=== PATIENT | male | born 1950 | race Caucasian/White ===

== ENCOUNTER 2017-05-15 10:14 | Outpatient (CLI) | payer MEDICARE ==
--- NOTE | 2017-05-15 14:32 | RAD ---
BARIUM ENEMA: (AIR CONTRAST) Date: 05/15/17 HISTORY: Fecal urgency. FINDINGS: There is unobstructed retrograde flow of contrast through the colon and into the cecum with retrogra de filling of the terminal ileum. Scattered diverticula are seen throughout the colon. No obstructin g mass or stricture is identified. Post evacuation film demonstrates residual contrast in the colon and small bowel loops. There are postop changes in the pelvis on the filler shredder image. There are degenerative changes in the spi ne. IMPRESSION: Colonic diverticulosis. POS: JAYLA
== END 2017-05-15 10:15 | disposition home or self-care (01) ==
LOC: RAD 10:14
PROVIDERS: ATTEND Surgery
DX: R15.2 Fecal urgency (principal); K57.30 Diverticulosis of large intestine without perforation or abscess without bleeding
CPT/HCPCS: 74280; 87015; 87045; 87046; 87324; 87449; 87899

== ENCOUNTER 2019-05-05 10:58 | Outpatient (CLI) | payer MEDICARE ==
--- NOTE | 2019-05-05 11:58 | CT ---
CT the abdomen with contrast INDICATION: diarrhea and epigastric abdominal pain Contrast: 70 cc of Isovue-370 COMPARISON: Prior CT the abdomen and pelvis dated 12/06/2015, 11/29/[address] dated 11/09 FINDINGS: There is bibasilar atelectasis. There are enlarging enhancing lesions seen within the right hepatic lobe on image 12 series 2 measuri ng 2.8 cm. An additional enlarging lesion is seen within the lateral right hepatic lobe on image 27 series 2 measuring 1.8 cm. These have increased in size from the comparison exams. There is stable right adrenal adenoma. Visualized gallbladder, left adrenal gland, pancreas and splee n appear within normal limits. The kidneys are normal appearing. There are moderate consultation involving abdominal aorta. A few scattered colonic diverticula. There is a normal appendix in the right lower quadrant. No lymph adenopathy is evident. There is scattered degenerative change. IMPRESSION: 1. Enlarging enhancing lesions of the right hepatic lobe. Recommend follow-up CT the abdomen utilizin g hemangioma protocol for additional characterization. 2. Stable right adrenal adenoma. 3. Colonic diverticulosis.
[2019-05-05] MEDS ORDERED: ISOVUE-370 76%-LOCM 1 ML ONE (17:51)
== END 2019-05-05 10:59 | disposition home or self-care (01) ==
LOC: BICCT 10:58
PROVIDERS: ATTEND Internal Medicine Gastroenterology
DX: R19.7 Diarrhea, unspecified (principal); K86.89 Other specified diseases of pancreas; K76.9 Liver disease, unspecified; D35.01 Benign neoplasm of right adrenal gland; K57.30 Diverticulosis of large intestine without perforation or abscess without bleeding
CPT/HCPCS: 74160; 82565; Q9966

== ENCOUNTER 2019-05-12 09:08 | Outpatient (CLI) | payer MEDICARE ==
--- NOTE | 2019-05-12 12:38 | CT ---
CT ABDOMEN WITH AND WITHOUT CONTRAST: HISTORY: Abnormal area of enhancement at the anterior aspect of the liver, which may represent a hemangioma. COMPARISON: 05/05/2019 TECHNIQUE: Multiple contiguous axial images were obtained in a CTA of the abdomen only with and without IV contr ast. Post contrast images were obtained in the arterial, portal venous and delayed phases. Strength a nd coronal reformats were performed. FINDINGS: There is an area of arterial enhancement along the anterior aspect of the liver, measuring 1.9 cm in size. This is smaller than on the prior examination. On the arterial phase image, there is a small pu nctate focus of enhancement along the anterior capsule of the liver and the enhancement is more promi nent within the liver on the later arterial/portal venous phase. On the delayed phase images there is homogeneous enhancement of the liver without significant washout. No other liver lesions are seen. There is a well circumscribed mass, measuring 3.9 cm in size, in the right adrenal gland with a mean Hounsfield unit value of -11. This is consistent with a fat-containing adrenal adenoma. The gallbladd er, kidneys, left adrenal glands, spleen, and pancreas are unremarkable. No free air, free fluid, or stranding changes are seen in the abdomen. The visualized large and small bowel are unremarkable. Atherosclerotic calcifications are seen in the aorta. Degenerative changes are seen in the spine. The visualized inferior thorax and abdominal wall soft ti ssue s are unremarkable IMPRESSION: 1. The area of abnormal enhancement of the liver most likely represents a vascular anomaly, such as a portal venous shunt. No suspicious hepatic mass is identified. 2. Right fat-containing adrenal adenoma. POS: JAYLA
[2019-05-12] MEDS ORDERED: ISOVUE-370 76%-LOCM 1 ML ONE (20:33)
== END 2019-05-12 09:09 | disposition home or self-care (01) ==
LOC: BICCT 09:08
PROVIDERS: ATTEND Internal Medicine Gastroenterology
DX: R93.3 Abnormal findings on diagnostic imaging of other parts of digestive tract (principal); D35.01 Benign neoplasm of right adrenal gland
CPT/HCPCS: 74170; Q9966

== ENCOUNTER 2019-07-22 12:28 | Outpatient (CLI) | payer MEDICARE ==
[2019-07-22 14:13] LABS: Hemoglobin 15.7 g/dL (14.0-18.0); Mean Corpuscular HGB CONC 33.1 g/dL (32.0-36.0); Mean Corpuscular Hemoglobin 30.4 pg (27.0-31.0); Mean Platelet Volume 6.7 fL (7.4-10.4); Platelet Count 251 thou/uL (130-400); RBC Distribution Width 13.1 % (11.5-14.5); Red Blood Cell (RBC) Count 5.15 mill/uL (4.70-6.10); White Blood Cell (WBC) Count 6.9 thou/uL (4.8-10.8)
[2019-07-22 14:37] LABS: Anion Gap 13 mmol/L (10-20); BUN (Urea Nitrogen) 15 mg/dL (8.4-25.7); Calc. Creatinine Clearance 0 mL/min (70-130); Calcium 9.1 mg/dL (7.8-10.44); Carbon Dioxide 24 mmol/L (23-31); Chloride 105 mmol/L (98-107); Estimated GFR-MDRD Greater than 90; Glucose 68 mg/dL (80-115); Potassium 4.2 mmol/L (3.5-5.1); Sodium 138 mmol/L (136-145)
[2019-07-22 15:21] LABS: INR-International Normal Ratio 1.3; PTT 35.3 SEC (22.9-36.1); Prothrombin Time 16.2 SEC (12.0-14.7)
== END 2019-07-22 12:29 | disposition home or self-care (01) ==
LOC: LABBT 12:28
PROVIDERS: ATTEND Internal Medicine Cardiovascular Disease
DX: Z01.812 Encounter for preprocedural laboratory examination (principal); I48.91 Unspecified atrial fibrillation
CPT/HCPCS: 80048; 85027; 85610; 85730

== ENCOUNTER 2019-07-26 08:11 | Observation (INO) | payer MEDICARE ==
[2019-07-22 12:52] VITALS: BMI 25.0
[2019-07-26] MEDS ORDERED: Heparin 10,000 UNITS/1 ML VIAL ONE (08:44)
[2019-07-26] MEDS ORDERED: Heparin (Artline) 1,500 ML ONE (08:44)
[2019-07-26] MEDS ORDERED: Midazolam HCl 2 mg/2 ml Vial ONE (09:46)
[2019-07-26] MEDS ORDERED: PROPOFOL 20 ML ONE (09:47)
[2019-07-26] MEDS ORDERED: Fentanyl 100 MCG/2 ML VIAL ONE (09:49)
[2019-07-26] MEDS ORDERED: Lidocaine 1% PF 5 ML VIAL ONE (09:57)
[2019-07-26] MEDS ORDERED: Succinylcholine Chloride 20 MG/ML 10 ml SYRINGE FS ONE (09:57)
[2019-07-26] MEDS ORDERED: PROPOFOL 200 MG/20 ML VIAL ONE (09:57)
[2019-07-26] MEDS ORDERED: Rocuronium Bromide 10 MG/ML (10ML VIAL) ONE (09:57)
[2019-07-26] MEDS ORDERED: Phenylephrine HCL 10 MG/ML VIAL ONE (10:35)
[2019-07-26] MEDS ORDERED: Heparin 25,000 units/D5W 500 ML ONE (10:39)
[2019-07-26] MEDS ORDERED: Isoproterenol 0.2 MG/1 ML AMP ONE (11:35)
[2019-07-26] MEDS ORDERED: Norepinephrine 4 MG/4 ML VIAL ONE (11:40)
[2019-07-26] MEDS ORDERED: Protamine Sulfate 50 MG/5 ML VIAL ONE (12:06)
--- NOTE | 2019-07-26 14:03 | OP ---
DATE OF PROCEDURE: 07/26/2019 PROCEDURES PERFORMED: 1. Electrophysiology study. 2. Radiofrequency ablation. REASON FOR PROCEDURE: Mr. Dior is a 69-year-old man with history of persisting atrial fibrillation, which recurs despite Multaq and on chronic Eliquis therapy. He had previous normal LVEF. Diabetes and hypertension also noted. He is here for EP study and ablation procedure. DESCRIPTION OF PROCEDURE: The patient received propofol by anesthesia specialist and general anesthesia was delivered. The left and right femoral venous areas were prepped and draped and anesthetized using subcutaneous lidocaine, and under ultrasound guidance, both femoral veins were cannulated x2. On the left side, an 8- and 11-Danish sheath were introduced, through which an intracardiac echocardiogram probe was advanced to the right atrium, which was used to monitor transseptal procedure and pericardial space throughout. Also on the left side, the short 8-Danish sheath was exchanged to a Preface long sheath, which was used to deliver a duo-Deca catheter to the coronary sinus and the right atrial position. On the right side, initially two 8-Danish sheath was introduced, through which a ThermoCool SFST bidirectional catheter was advanced to the right atrium. 3D map of the right atrium, His bundle, coronary sinus was also obtained. Following that, IV heparin was administered in a bolus and a drip fashion, which was used to keep ACT over 350 throughout the case. Through the right side, sheaths were exchanged to SL1 sheaths, which were used to perform transseptal puncture using a powered [place] needle under intracardiac ultrasound and fluoroscopic guidance. 3D map of the left atrium was obtained and standard pulmonary venous isolation was performed using a total of 16 minutes radiofrequency energy, delivered over 22 sessions with #42 bolivar energy output was used. Throughout the case, an esophageal probe was used to monitor temperatures in the esophagus to avoid excessive heating. Also, impedance monitoring was performed and pressure monitoring throughout the procedure. We were able to achieve all 4 vein isolation and also the posterior was isolated using a roof and the inferior line. Beside this efforts, the patient remained in atrial fibrillation, only moderate scarring was seen. Cardioversion was performed at this point and normal sinus rhythm remained. Isuprel was administered up to 10 mcg and any reconnection re-ablated. At the end of the case, a basic EP study was performed using LV pacing to rule out accessory pathway. Retrograde Wenckebach was measured at 330 milliseconds. Antegrade Wenckebach on Isuprel was 250 milliseconds. The atrial ERP was 500/240 milliseconds and no definite dual AV node physiology and no evidence of accessory pathway was found. At the end of the case, catheter was removed from the left side. Heparin was stopped and then reversed with protamine. The long sheaths were exchanged to short sheaths and Vascade closure was performed in all 4 peripheral venous access sites. At the end of the case, the intracardiac echocardiogram did not show change in the baseline small effusion. Reduced LVEF was seen, which improved with Isuprel and the cardiac silhouette did not change significantly. The patient tolerated the procedure well. No complications noted. CONCLUSION: 1. Successful for pulmonary vein isolation performed as well as posterior wall isolation. 2. Normal atrioventricular zuleika function with no inducible arrhythmias at the end of the case. 3. No significant premature atrial complex burden on Isuprel with no evidence of reconnection. 4. No evidence of accessory pathway or dual atrioventricular zuleika physiology present. PLAN: Continue anticoagulation with Eliquis and monitor for recurrent arrhythmias. Hold Protecode for now. Job ID: [id number]
[2019-07-26] MEDS: Sucralfate 1 GM TAB PO SCH ×3 (15:56→20:32)
[2019-07-26 16:18] LABS: Platelet Count 232 thou/uL (130-400)
[2019-07-26 16:29] LABS: Calc. Creatinine Clearance 90 mL/min (70-130); Estimated GFR-MDRD Greater than 90
[2019-07-26 19:18] LABS: Hemoglobin 15.3 g/dL (14.0-18.0); Platelet Count 232 thou/uL (130-400)
[2019-07-26] MEDS: Apixaban 5 MG TAB PO SCH (20:32)
[2019-07-27 08:44] VITALS: BP 136/85; TEMP 98.5
[2019-07-27] MEDS: Apixaban 5 MG TAB PO SCH (09:04)
[2019-07-27] MEDS: Sucralfate 1 GM TAB PO SCH (09:05)
--- NOTE | 2019-07-28 04:06 | DIS ---
DATE OF ADMISSION: 07/26/2019 DATE OF DISCHARGE: 07/27/2019 DIAGNOSIS: Atrial fibrillation. HOSPITAL COURSE: Mr. Dior is a pleasant 69-year-old gentleman with history of persistent atrial fibrillation, refractory to Multaq. He had been on chronic Eliquis therapy and he was admitted for an elective EP study and radiofrequency ablation that was performed on 07/26/[address] Rai. He received a total of approximately 16 minutes RF energy lesions delivered and required cardioversions to restore sinus rhythm at the end of the case. He underwent successful PVI as well as posterior wall isolation. He was found to have normal AV zuleika function, no inducible arrhythmias at the end of the case. No significant PAC burden seen. Since the time of ablation, he has maintained in sinus rhythm overnight. There is also no evidence of accessory pathway or dual AV zuleika physiology. Recommendation was for continue anticoagulation with Eliquis and to monitor for recurrent arrhythmias. Discontinued Multaq for now. Mr. Dior is doing well, one day post ablation. He does not have any cardiac concerns or complains today. Denied any chest pain, pressure, syncope, near syncope, stroke, or stroke-like symptoms, heart racing, or palpitations. He has not had any bleeding at his groin sites and feels ready to discharge home. REVIEW OF SYSTEMS: 8-point review of systems is conducted and is negative except that listed above in hospital course. OBJECTIVE: VITAL SIGNS: Temperature 98.5, pulse 88, blood pressure 136/85, respirations 14, oxygen is 96% on room air. GENERAL: The patient is alert and oriented. Speech is clear. Affect is appropriate. He is in no apparent distress at the time of exam. NECK: Supple without jugular venous distention. There is no lymphadenopathy and carotids are without bruits. HEART: Irregularly irregular with a crisp S1, S2. PMI is nondisplaced. LUNGS: Clear to auscultation bilaterally without wheezes, crackles, or rhonchi. ABDOMEN: Soft and nontender without palpable masses. EXTREMITIES: Warm and dry to touch without clubbing, cyanosis, or edema. DISCHARGE MEDICATIONS: Will be resuming home medications of simvastatin 20 mg daily, diltiazem 240 mg daily, Eliquis 5 mg b.i.d. New prescription for Carafate 1 g q.i.d. x 2 weeks, pantoprazole 40 mg daily x 1 month, and p.r.n. Lasix 40 mg as needed for shortness of breath of swelling of the extremities. Discontinued medication is digoxin. Telemetry and EKG shows sinus rhythm with no significant amount of atrial ectopies at the time of ablation. DISCHARGE INSTRUCTIONS: 1. Continue Eliquis without interruption and medications as described above. 2. Contact [facility] for any postablation concerns. 3. Follow up in 6 weeks or sooner if symptoms dictate. CONDITION AT DISCHARGE: Stable. Job ID: [id number]
== END 2019-07-27 11:04 | disposition home or self-care (01) ==
LOC: CCL 08:11 → 2SW 12:36
PROVIDERS: ADMIT Internal Medicine Cardiovascular Disease; ATTEND Internal Medicine Cardiovascular Disease
PROC: 4A023FZ Measurement of Cardiac Rhythm, Percutaneous Approach (ICD-10-PCS; principal; 2019-07-26)
PROC: 4A0234Z Measurement of Cardiac Electrical Activity, Percutaneous Approach (ICD-10-PCS; 2019-07-26)
PROC: 02583ZZ Destruction of Conduction Mechanism, Percutaneous Approach (ICD-10-PCS; 2019-07-26)
PROC: 02K83ZZ Map Conduction Mechanism, Percutaneous Approach (ICD-10-PCS; 2019-07-26)
DX: I48.19 Other persistent atrial fibrillation (principal); Z79.01 Long term (current) use of anticoagulants; Z79.899 Other long term (current) drug therapy; Z90.49 Acquired absence of other specified parts of digestive tract; Z90.79 Acquired absence of other genital organ(s)
CPT/HCPCS: 76942; 82565 ×2; 85014; 85018; 85049; 85347 ×2; 92960; 93005 ×2; 93613; 93622; 93623; 93656; 93662; C1731; C1732 ×3; C1759; C1769; G0378 ×2; 36415; 93010; J1644; J2001; J2250; J2370; J2704; J2720; J3010

== ENCOUNTER → 2019-08-09 | Day surgery (SDC) | payer MEDICARE ==
[2019-08-06 09:07] VITALS: BMI 23.1
[~2019-08-09] MED LIST: Labetalol HCl 100 MG/20 ML VIAL ONE; Metoprolol Tartrate 5 MG/5 ML VIAL IVP SCH
[2019-08-09 08:49] LABS: #Eosinphils 0.1 thou/uL (0.0-0.7); #Monocytes 0.4 thou/uL (0.11-0.59); #Neutrophils 6.3 thou/uL (1.40-6.50); %Basophils 0.4 % (0.0-1.0); %Eosinophils 1.1 % (0.0-10.0); %Lymphocytes 12.4 % (21.0-51.0); %Monocytes 5.6 % (0.0-10.0); %Neutrophils 80.5 % (42.0-75.0); Hemoglobin 14.4 g/dL (14.0-18.0); Mean Corpuscular HGB CONC 33.7 g/dL (32.0-36.0); Mean Corpuscular Hemoglobin 30.2 pg (27.0-31.0); Mean Corpuscular Volume 89.7 fL (78.0-98.0); Mean Platelet Volume 6.8 fL (7.4-10.4); Platelet Count 227 thou/uL (130-400); RBC Distribution Width 13.1 % (11.5-14.5); Red Blood Cell (RBC) Count 4.78 mill/uL (4.70-6.10); White Blood Cell (WBC) Count 7.8 thou/uL (4.8-10.8)
[2019-08-09 09:10] LABS: Anion Gap 12 mmol/L (10-20); BUN (Urea Nitrogen) 13 mg/dL (8.4-25.7); Calc. Creatinine Clearance 81 mL/min (70-130); Calcium 8.7 mg/dL (7.8-10.44); Carbon Dioxide 25 mmol/L (23-31); Chloride 100 mmol/L (98-107); Estimated GFR-MDRD 90; Glucose 96 mg/dL (80-115); Potassium 3.6 mmol/L (3.5-5.1); Sodium 133 mmol/L (136-145)
--- NOTE | 2019-08-09 11:13 | PRG ---
DATE OF SERVICE: 08/09/2019 Mr. Dior was brought here for an outpatient cardioversion, but it was found that he is going in and out of atrial fibrillation. The patient has had adverse side effects with diltiazem with severe edema. The patient had recent ablation. Here, the patient did receive 5 mg of metoprolol IV and he maintained on sinus rhythm for an hour before he is going in and out almost continuously. Then, he will be discharged on the following medications; 1. Digoxin 0.125 mg a day. 2. Lisinopril 10 mg a day. 3. Eliquis 5 mg twice a day. 4. Multaq 400 mg twice a day. 5. Metoprolol succinate 50 mg a day. 6. Rosuvastatin. Taken off the diltiazem. The patient will be followed up in the office. Obviously, cardioversion is not indicated as he was going in and out of fibrillation. Job ID: [id number]
--- NOTE | 2019-08-09 17:02 | EKG ---
Test Reason : PREOP CARDIOVERSION Blood Pressure : / mmHG Vent. Rate : 115 BPM Atrial Rate : 122 BPM P-R Int : 000 ms QRS Dur : 090 ms QT Int : 366 ms P-R-T Axes : 000 103 118 degrees QTc Int : 506 ms Atrial fibrillation with rapid ventricular response with premature ventricular or aberrantly conducte d complexes Rightward axis Low voltage QRS T wave abnormality, consider lateral ischemia or digitalis effect Abnormal ECG When compared with ECG of 27-JUL-2019 07:17, (Unconfirmed) Atrial fibrillation has replaced Sinus rhythm Confirmed by DR. Moi LOMBARDI ([id number]) on 08/09/2019 5:01:50 PM Referred By: SANDY Confirmed By:DR. Moi LOMBARDI
== END ==
LOC: CCL 08:08
PROVIDERS: ATTEND Internal Medicine Cardiovascular Disease
DX: I48.91 Unspecified atrial fibrillation (principal); R60.9 Edema, unspecified; T46.1X5A Adverse effect of calcium-channel blockers, initial encounter; Z53.8 Procedure and treatment not carried out for other reasons; Z79.01 Long term (current) use of anticoagulants; Z79.899 Other long term (current) drug therapy; Z90.49 Acquired absence of other specified parts of digestive tract
CPT/HCPCS: 36415; 80048; 85025; 93005; 93010

== ENCOUNTER → 2019-09-24 | Day surgery (SDC) | payer MEDICARE ==
[2019-09-23 12:34] VITALS: BMI 23.0
[~2019-09-24] MED LIST changes: -Labetalol HCl 100 MG/20 ML VIAL ONE; -Metoprolol Tartrate 5 MG/5 ML VIAL IVP SCH; +PROPOFOL 200 MG/20 ML VIAL ONE
[2019-09-24 09:12] LABS: #Eosinphils 0.3 thou/uL (0.0-0.7); #Lymphocytes 1.5 thou/uL (1.20-3.40); #Monocytes 0.5 thou/uL (0.11-0.59); #Neutrophils 2.8 thou/uL (1.40-6.50); %Basophils 0.8 % (0.0-1.0); %Eosinophils 5.4 % (0.0-10.0); %Lymphocytes 29.4 % (21.0-51.0); %Monocytes 8.9 % (0.0-10.0); %Neutrophils 55.4 % (42.0-75.0); Hemoglobin 16.7 g/dL (14.0-18.0); Mean Corpuscular HGB CONC 33.6 g/dL (32.0-36.0); Mean Corpuscular Hemoglobin 30.2 pg (27.0-31.0); Mean Corpuscular Volume 89.9 fL (78.0-98.0); Mean Platelet Volume 7.1 fL (7.4-10.4); Platelet Count 222 thou/uL (130-400); RBC Distribution Width 14.6 % (11.5-14.5); Red Blood Cell (RBC) Count 5.53 mill/uL (4.70-6.10)
[2019-09-24 09:18] LABS: Prothrombin Time 13.4 SEC (12.0-14.7)
[2019-09-24 09:19] LABS: PTT 32.6 SEC (22.9-36.1)
[2019-09-24 09:26] LABS: Anion Gap 13 mmol/L (10-20); BUN (Urea Nitrogen) 14 mg/dL (8.4-25.7); Calc. Creatinine Clearance 78 mL/min (70-130); Calcium 8.9 mg/dL (7.8-10.44); Carbon Dioxide 24 mmol/L (23-31); Chloride 105 mmol/L (98-107); Estimated GFR-MDRD 88; Glucose 88 mg/dL (80-115); Potassium 4.5 mmol/L (3.5-5.1); Sodium 137 mmol/L (136-145)
--- NOTE | 2019-09-24 13:31 | OP ---
DATE OF PROCEDURE: 09/24/2019 PROCEDURE PERFORMED: Cardioversion. REASON FOR PROCEDURE: Mr. Dior is a 69-year-old man with history of persistent atrial fibrillation post pulmonary venous isolation procedure on 07/26/2019, had recurrent arrhythmia from the cardioversion and Multaq initiation. He had further recurrence and now is here for another cardioversion. DESCRIPTION OF PROCEDURE: The patient received propofol by anesthesia specialist. After adequate level of sedation achieved, a synchronized 70-joule shock converted the patient back to sinus rhythm with rate of 48 beats per minute. The patient tolerated the procedure well. No complications noted. PLAN: Continue monitoring for bradyarrhythmic symptoms. Continue Multaq for now, likely stop digoxin unless recurrent atrial flutters are seen. Routine followup in the office in 6 weeks. Job ID: [id number]
== END ==
LOC: CCL 08:27
PROVIDERS: ATTEND Internal Medicine Cardiovascular Disease
PROC: 5A2204Z Restoration of Cardiac Rhythm, Single (ICD-10-PCS; principal; 2019-09-24)
DX: I48.19 Other persistent atrial fibrillation (principal); I48.4 Atypical atrial flutter; I08.1 Rheumatic disorders of both mitral and tricuspid valves; E11.51 Type 2 diabetes mellitus with diabetic peripheral angiopathy without gangrene; I10 Essential (primary) hypertension; E78.00 Pure hypercholesterolemia, unspecified; Z79.01 Long term (current) use of anticoagulants; Z79.899 Other long term (current) drug therapy
CPT/HCPCS: 80048; 85025; 85610; 85730; 92960; J2704

== ENCOUNTER 2019-10-11 10:49 | Emergency (ER) | payer MEDICARE ==
[2019-10-11 11:26] LABS: #Basophils 0.1 thou/uL (0.0-0.2); #Eosinphils 0.2 thou/uL (0.0-0.7); #Monocytes 0.7 thou/uL (0.11-0.59); #Neutrophils 5.4 thou/uL (1.40-6.50); %Basophils 1.1 % (0.0-1.0); %Eosinophils 2.6 % (0.0-10.0); %Lymphocytes 23.5 % (21.0-51.0); %Monocytes 8.3 % (0.0-10.0); %Neutrophils 64.5 % (42.0-75.0); Hemoglobin 16.9 g/dL (14.0-18.0); Mean Corpuscular HGB CONC 33.8 g/dL (32.0-36.0); Mean Corpuscular Hemoglobin 30.5 pg (27.0-31.0); Mean Corpuscular Volume 90.1 fL (78.0-98.0); Mean Platelet Volume 6.8 fL (7.4-10.4); Platelet Count 259 thou/uL (130-400); RBC Distribution Width 15.6 % (11.5-14.5); Red Blood Cell (RBC) Count 5.55 mill/uL (4.70-6.10); White Blood Cell (WBC) Count 8.4 thou/uL (4.8-10.8)
[2019-10-11 11:41] LABS: ALT (SGPT) 43 U/L (8-55); AST (SGOT) 42 U/L (5-34); Albumin 4.3 g/dL (3.4-4.8); Alkaline Phosphatase 117 U/L (40-110); Anion Gap 14 mmol/L (10-20); BUN (Urea Nitrogen) 12 mg/dL (8.4-25.7); Bilirubin, Total 1.3 mg/dL (0.2-1.2); CK (CPK) 70 U/L (30-200); Calc. Creatinine Clearance 0 mL/min (70-130); Calcium 9.3 mg/dL (7.8-10.44); Carbon Dioxide 23 mmol/L (23-31); Chloride 105 mmol/L (98-107); Estimated GFR-MDRD Greater than 90; Globulin 2.6 g/dL (2.4-3.5); Glucose 108 mg/dL (80-115); Potassium 4.6 mmol/L (3.5-5.1); Protein, Total 6.9 g/dL (5.8-8.1); Sodium 137 mmol/L (136-145)
--- NOTE | 2019-10-11 11:42 | RAD ---
EXAM: Chest one view: HISTORY: Chest pain COMPARISON: 03/17/2019 FINDINGS: Stable chest. Heart size: Within normal limits. Lungs: Clear of acute process. No evidence for confluent pneumonia, pleural effusion, acute edema, or pneumothorax, or other signifi cant acute process. IMPRESSION: No significant acute intrathoracic disease.
[2019-10-11] MEDS ORDERED: Metoprolol Tartrate 5 MG/5 ML VIAL ONE ×2 (11:45→12:45)
[2019-10-11 12:03] LABS: CKMB 2.4 ng/mL (0-6.6)
--- NOTE | 2019-10-12 07:51 | CON ---
DATE OF CONSULTATION: 10/11/2019 Consultation performed by Michelle Johnson, Nurse practitioner for Dr. Fletcher Rai. DIAGNOSIS: Atrial flutter with RVR. CONSULTING PHYSICIAN: Dr. Lofton. HISTORY OF PRESENT ILLNESS: Mr. Dior is a gentleman known to our practice for history of persistent atrial fibrillation, who underwent PVAI on 07/26/2019 with early recurrence requiring cardioversion after Multaq re-initiation on 08/09/2019. He had a further recurrence and was transitioned to amiodarone, which converted him back to sinus rhythm. He is on chronic anticoagulation with Eliquis for CHADS-VASc score of 3. Over the weekend, he found that his heart rate was remaining elevated and that his blood pressure had been climbing also. He is currently medicated with amiodarone 200 mg daily and metoprolol succinate 50 mg daily. He had a tendency for bradycardia on high-dose metoprolol with his amiodarone loading and has had extensive peripheral edema on diltiazem in the past. Mr. Dior is feeling fairly well. He denies any heart racing, palpitations, chest pain, pressure, syncope, near syncope, stroke, stroke-like symptoms. He was aware of his heart rate being elevated when he initially came in. There has been some improvement in that. He does not feel poorly symptomatic at this time. REVIEW OF SYSTEMS: A 12-point review of systems is negative except that listed above in HPI. PAST MEDICAL HISTORY: 1. Persistent atrial fibrillation despite PVAI on 07/26/2019 with early recurrence, refractory to Multaq with early recurrence, refractory to amiodarone loading. 2. Tendency for bradycardia on high-dose AV zuleika blocking agents. 3. Preserved LV EF 60% to 65% by echo in April of 2018. 4. Peripheral vascular disease. 5. Hypertension. 6. Diabetes. 7. Hypercholesterolemia. 8. Tobacco habituation. 9. Alcohol consumption. ALLERGIES: NONE. MEDICATIONS: Eliquis 5 mg p.o. b.i.d., metoprolol succinate 50 mg daily, amiodarone loading and rosuvastatin 20 mg daily. FAMILY HISTORY: Noncontributory. 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 Positive alcohol. Positive for tobacco. OBJECTIVE: VITAL SIGNS: Heart rate 124 beats per minute. Afebrile. Blood pressure 132/100, respirations are 14 on room air, and oxygen is 95%. GENERAL: The patient is alert, oriented, and speech is clear. Affect is appropriate. In no apparent distress. At the time of the exam, there is no lymphadenopathy. LUNGS: Clear to auscultation bilaterally. HEART: Rate is rapid, but regular. ABDOMEN: Soft and nontender without palpable masses. EXTREMITIES: Warm to touch without clubbing, cyanosis, or edema. NEUROLOGIC: Grossly intact. Gait is not assessed. IMAGING DATA: Telemetry and bedside monitor EKG shows atypical atrial flutter with 2-1 conduction, rapid between 120 to 140 beats per minute. IMPRESSION: 1. Persistent atrial fibrillation with early recurrence refractory to Multaq and amiodarone. 2. Tendency for bradycardia on high-dose AV zuleika blocking agents. 3. CHADS-VASc score of 3, on Eliquis. 4. Tobacco habituation, ongoing. 5. Hypertension. 6. Sensitivity to diltiazem causing peripheral edema. PLAN AND RECOMMENDATIONS: Mr. Dior is unfortunately experiencing another recurrent episode of atrial flutter. It is nearly three months post ablation and so at this point, given his prior recurrences, recommendation is for repeat left atrial ablation. Immediately spoken with the emergency room physician and patient will be cardioverted. He is n.p.o. After this cardioversion, if we were able to successfully restore sinus rhythm, we would recommend discontinuing amiodarone, continuing Eliquis and proceeding with rate control alone. By our records, he was on metoprolol succinate 50 mg daily, but was previously on 150 mg daily. He had previously been on digoxin as well, but there was some concern for bradycardia with metoprolol and digoxin. We will expedite an outpatient ablation for him on Friday. Risks, benefits, and alternatives were discussed. Risks include hematoma, bleeding at the groin site, pericardial effusion, stroke, atrial esophageal fistula, arrhythmia recurrence, possible need for repeat ablation or possible need for chest tube or CV surgery. The patient voices understanding and wishes to proceed. We are hopeful that cardioversion will work and that he will be able to go home until Friday. This consultation was performed in conjunction with Dr. Fletcher Rai, who has also spoken to the emergency room physician and agreed to this plan of care. Job ID: [id number]
== END 2019-10-11 14:26 | disposition home or self-care (01) ==
LOC: ERS 10:49
DX: I48.92 Unspecified atrial flutter (principal); I10 Essential (primary) hypertension; I48.91 Unspecified atrial fibrillation; F17.210 Nicotine dependence, cigarettes, uncomplicated
CPT/HCPCS: 71045; 80053; 82550; 82553; 84484; 85025; 93005; 96374

== ENCOUNTER 2019-10-13 07:36 | Observation (INO) | payer MEDICARE ==
[2019-10-12 11:15] VITALS: BMI 23.5
[2019-10-13 08:35] LABS: INR-International Normal Ratio 1.1; Prothrombin Time 13.7 SEC (12.0-14.7)
[2019-10-13] MEDS ORDERED: Lidocaine 1% PF 5 ML VIAL ONE (10:08)
[2019-10-13] MEDS ORDERED: Glycopyrrolate 0.2 MG/ML 5 ML SYRINGE ONE (10:08)
[2019-10-13] MEDS ORDERED: PROPOFOL 200 MG/20 ML VIAL ONE (10:08)
[2019-10-13] MEDS ORDERED: Vecuronium 10 MG VIAL ONE (10:08)
[2019-10-13] MEDS ORDERED: EPHEDRINE 25 MG/5 ML SYRINGE ONE (10:08)
[2019-10-13] MEDS ORDERED: Ondansetron PF 4 MG/2 ML Vial ONE (10:08)
[2019-10-13] MEDS ORDERED: Heparin 10,000 UNITS/1 ML VIAL ONE ×2 (10:18→13:14)
[2019-10-13] MEDS ORDERED: Heparin 25,000 units/D5W 500 ML ONE (10:18)
[2019-10-13] MEDS ORDERED: Lidocaine 1% (PF) 30 ML VIAL ONE (10:23)
[2019-10-13] MEDS ORDERED: Fentanyl 100 MCG/2 ML VIAL ONE (10:49)
[2019-10-13] MEDS ORDERED: Isoproterenol 0.2 MG/1 ML AMP ONE (13:24)
[2019-10-13] MEDS ORDERED: Protamine Sulfate 50 MG/5 ML VIAL ONE (14:41)
--- NOTE | 2019-10-13 19:53 | OP ---
DATE OF PROCEDURE: 10/13/2019 PROCEDURES PERFORMED: Electrophysiology study and radiofrequency ablation. REASON FOR PROCEDURE: Mr. Dior is a pleasant 69-year-old man with history of persistent atrial fibrillation, who underwent a pulmonary venous isolation procedure on July 26, 2019. He had early recurrence of an atrial flutter requiring initially Multaq, then later amiodarone loading. Despite had recurrences, we expedite his redo ablation for today. The original ablation was on 07/26/2019. DESCRIPTION OF PROCEDURE: The patient received general anesthesia by Anesthesia specialist. After adequate level of sedation achieved, the left and right femoral veins were cannulated under ultrasound guidance. On the left side, an 11-[place] sheath was used to advance an intracardiac echo probe to the right atrium, but it was used to monitor the transeptal procedure. The catheter manipulation as well as the pericardial space throughout the procedure. Also through the left side, a Preface sheath was advanced to the inferior vena cava and a duo-Deca catheter was advanced through this into the right atrium and CS position. From the right femoral veins, two 8-[place] short sheaths were introduced, through which a ThermoCool SFST catheter was advanced to the right atrium. 3D map of the right atrium, CS, His bundle, and cavotricuspid isthmus were obtained. Basic EP study was performed. Initial rhythm was in atrial flutter, which promptly terminated on attempted pacing maneuvers. Following that, transseptal puncture was performed after IV heparin was administered in a bolus and drip fashion, which was periodically rechecked with ACTs to keep ACT over 350. The heparin was adjusted. The transseptal procedure was performed via the SL1 sheath x2 with the help of a [employer] powered needle under ultrasound and fluoroscopic monitoring. Through the SL1 sheath, a 20-pole PentaRay catheter as well as a ThermoCool SFST catheter were advanced to the left atrium. 3D map of the left atrium was obtained. The following findings were noted. The baseline rhythm was sinus rhythm. We were able to detect reconnection of the right inferior and right superior pulmonary vein as well as a posterior wall. The voltage map revealed moderate scarring mostly at the prior ablation lines. The radiofrequency ablation was delivered at the higher voltage area on the prior ablation lines at the earliest activation in the posterior right sanjeev area. I re-isolated the right superior vein and further ablation on the right posterior wall. I isolated the inferior vein as well. Throughout the ablations in the posterior wall area, close monitoring attempt of the esophageal temperature was performed via the esophageal temperature probe, which was adjusted throughout the case to avoid excessive esophageal heating. In places where some heating was observed, high-flow irrigation was performed to cool the endocardial surface. Also, further lesions were placed in the posterior wall as well achieving complete posterior wall isolation. Following findings were noted. LV pacing was performed via the ablation catheter advanced to the LV. Retrograde Wenckebach cycle length was 440 milliseconds. Concentric retrograde VA conduction was seen. Anterior Wenckebach cycle length was 380 milliseconds. Burst atrial pacing was able to reinduce an atrial flutter, but there was difficulty in mapping due to frequent termination. Isuprel was administered and occasional PACs were noted from the mid CS area and further ablations were delivered in the base of the left atrium over the mid CS roof, which terminated the PACs. Also, following this burst atrial pacing, it did not reinduce atrial fibrillation or flutter. Further lesions were placed in the inferior septum of the left atrium as well. At the end of the case, the catheter was withdrawn from the left atrium and the heparin was stopped and reversed with protamine. Intracardiac echo was advanced to the right ventricle and no pericardial effusion was noted. Cardiac silhouette also did not change significantly throughout the procedure. The HV interval did not change, 42 milliseconds. The sinus cycle length is 433 milliseconds, MT 166 milliseconds, QRS 110, QT 395 milliseconds. The long sheaths were exchanged for short sheaths and vascular closure was performed in each vein under ultrasound guidance. The patient tolerated the procedure well. No complications were noted. CONCLUSIONS: 1. Successful re-isolation of the right-sided pulmonary veins. The left-sided pulmonary veins remained isolated from the prior ablation. 2. Successful re-isolation of the posterior wall performed. 3. Further lesions in the inferior left atrium over the CS roof were placed eliminating inducibility of the atrial flutter as well as the CS PACs seen during Isuprel. 4. Normal AV zuleika and sinus zuleika function. Normal His-Purkinje function. No evidence of accessory pathway. 5. No arrhythmia inducible at the end of the case. PLAN: Continue monitoring for recurrent atrial arrhythmias. Resume oral anticoagulation. Hold antiarrhythmic agents for now. Monitor for bradyarrhythmia. Job ID: [id number] [facility]
[2019-10-13] MEDS: Apixaban 5 MG TAB PO SCH (20:47)
[2019-10-13] MEDS ORDERED: Rosuvastatin 20 MG TAB PO SCH (21:00)
[2019-10-14] MEDS ORDERED: Sucralfate 1 GM TAB PO SCH (07:30)
[2019-10-14 08:11] VITALS: BP 165/80; TEMP 98.5
[2019-10-14] MEDS: Apixaban 5 MG TAB PO SCH (08:17)
--- NOTE | 2019-10-21 19:32 | EKG ---
Test Reason : POST OP Blood Pressure : / mmHG Vent. Rate : 050 BPM Atrial Rate : 050 BPM P-R Int : 154 ms QRS Dur : 094 ms QT Int : 570 ms P-R-T Axes : 066 054 110 degrees QTc Int : 519 ms Sinus bradycardia Septal infarct (cited on or before 11-OCT-2019) T wave abnormality, consider lateral ischemia Prolonged QT Abnormal ECG When compared with ECG of 11-OCT-2019 13:16, (Unconfirmed) Premature supraventricular complexes are no longer Present Borderline criteria for Inferior infarct are no longer Present Serial changes of evolving Septal infarct Present Confirmed by DR. Juwan DELGADO ([id number]) on 10/21/2019 7:31:51 PM Referred By: [facility] Confirmed By:DR. Juwan DELGADO
== END 2019-10-14 10:34 | disposition home or self-care (01) ==
LOC: CCL 07:36 → 2SW 14:43
PROVIDERS: ADMIT Internal Medicine Cardiovascular Disease; ATTEND Internal Medicine Cardiovascular Disease
PROC: 4A023FZ Measurement of Cardiac Rhythm, Percutaneous Approach (ICD-10-PCS; principal; 2019-10-13)
PROC: 4A0234Z Measurement of Cardiac Electrical Activity, Percutaneous Approach (ICD-10-PCS; 2019-10-13)
PROC: 02583ZZ Destruction of Conduction Mechanism, Percutaneous Approach (ICD-10-PCS; 2019-10-13)
DX: I48.19 Other persistent atrial fibrillation (principal); I48.92 Unspecified atrial flutter; Z79.01 Long term (current) use of anticoagulants; Z79.899 Other long term (current) drug therapy
CPT/HCPCS: 76942; 85347 ×2; 85610; 85730; 93005 ×2; 93613; 93622; 93623; 93656; 93662; C1731; C1732 ×2; C1759; C1769; G0378 ×2; 36415; 93010; J1644; J2001; J2405; J2704; J2720; J3010

== ENCOUNTER 2019-11-03 09:00 | Day surgery (SDC) | payer MEDICARE ==
[2019-11-02 16:46] VITALS: BMI 22.1
[2019-11-03] MEDS ORDERED: PROPOFOL 20 ML ONE (12:06)
--- NOTE | 2019-11-03 13:41 | OP ---
DATE OF PROCEDURE: 11/03/2019 PROCEDURE PERFORMED: Electrical cardioversion. REASON FOR PROCEDURE: Mr. Dior is a 69-year-old man with prior history of persistent atrial fibrillation, status post repeated pulmonary venous isolation procedure most recently on October 13, 2019. He had early recurrence of atrial flutter and required flecainide loading, also on metoprolol. He has uninterrupted anticoagulation with Eliquis. DESCRIPTION OF PROCEDURE: The patient received propofol by Anesthesia specialist. After adequate level of sedation achieved, a synchronized 50 joule shock converted the patient back to sinus rhythm. CONCLUSION: Successful cardioversion. PLAN: Continue anticoagulation. Continue flecainide 100 mg twice a day and adjust metoprolol to avoid excessive bradycardia. Routine follow up in the office visit in 3 weeks. Job ID: [id number]
--- NOTE | 2019-11-03 22:46 | EKG ---
Test Reason : PREOP CARDIOVERSION Blood Pressure : / mmHG Vent. Rate : 103 BPM Atrial Rate : 103 BPM P-R Int : 210 ms QRS Dur : 106 ms QT Int : 384 ms P-R-T Axes : 092 086 085 degrees QTc Int : 503 ms Sinus tachycardia with 1st degree A-V block ST elevation consider inferior injury or acute infarct * ACUTE OK * Consider right ventricular involvement in acute inferior infarct Abnormal ECG When compared with ECG of 14-OCT-2019 08:25, (Unconfirmed) Significant changes have occurred Confirmed by Ed DILL ([id number]) on 11/03/2019 10:46:16 PM Referred By: [facility] Confirmed By:Ed DILL
--- NOTE | 2019-11-03 22:48 | EKG ---
Test Reason : POST CARDIOVERSION Blood Pressure : / mmHG Vent. Rate : 059 BPM Atrial Rate : 059 BPM P-R Int : 154 ms QRS Dur : 094 ms QT Int : 464 ms P-R-T Axes : 080 079 088 degrees QTc Int : 459 ms Sinus bradycardia Otherwise normal ECG When compared with ECG of 03-NOV-2019 09:51, (Unconfirmed) IL interval has decreased Vent. rate has decreased BY [address] no longer elevated in Inferior leads QT has shortened Confirmed by Ed DILL ([id number]) on 11/03/2019 10:48:21 PM Referred By: [facility] Confirmed By:Ed DILL
== END 2019-11-03 13:46 | disposition home or self-care (01) ==
LOC: SDC 09:00
PROVIDERS: ATTEND Internal Medicine Cardiovascular Disease
PROC: 5A2204Z Restoration of Cardiac Rhythm, Single (ICD-10-PCS; principal; 2019-11-03)
DX: I48.19 Other persistent atrial fibrillation (principal); Z79.01 Long term (current) use of anticoagulants; Z79.899 Other long term (current) drug therapy; Z90.49 Acquired absence of other specified parts of digestive tract; Z90.79 Acquired absence of other genital organ(s)
CPT/HCPCS: 84484; 92960; 93005; 93010; J2704

== ENCOUNTER 2020-04-08 18:35 | Emergency (ER) | payer MEDICARE ==
[2020-04-08] MEDS ORDERED: Diltiazem 125 MG/25 ML ONE (19:06)
[2020-04-08 19:26] LABS: #Basophils 0.1 thou/uL (0.0-0.2); #Eosinphils 0.2 thou/uL (0.0-0.7); #Lymphocytes 2.1 thou/uL (1.20-3.40); #Neutrophils 5.3 thou/uL (1.40-6.50); %Basophils 0.7 % (0.0-1.0); %Eosinophils 2.8 % (0.0-10.0); %Lymphocytes 23.9 % (21.0-51.0); %Monocytes 11.5 % (0.0-10.0); Hemoglobin 15.6 g/dL (14.0-18.0); Mean Corpuscular HGB CONC 34.2 g/dL (32.0-36.0); Mean Corpuscular Hemoglobin 32.1 pg (27.0-31.0); Mean Corpuscular Volume 93.8 fL (78.0-98.0); Mean Platelet Volume 6.9 fL (7.4-10.4); Platelet Count 284 thou/uL (130-400); RBC Distribution Width 12.4 % (11.5-14.5); Red Blood Cell (RBC) Count 4.85 mill/uL (4.70-6.10); White Blood Cell (WBC) Count 8.7 thou/uL (4.8-10.8)
--- NOTE | 2020-04-08 19:49 | RAD ---
PORTABLE CHEST: 04/08/20 PROVIDED CLINICAL HISTORY: Chest pain. FINDINGS: Comparison 10/17/19. The cardiac and mediastinal silhouette is within normal limits. No focal consolidation, pleural fluid or pneumothorax apparent. IMPRESSION: No evidence for an acute cardiopulmonary process. POS: [facility]
[2020-04-08 19:50] LABS: ALT (SGPT) 34 U/L (8-55); AST (SGOT) 30 U/L (5-34); Albumin 4.4 g/dL (3.4-4.8); Alkaline Phosphatase 90 U/L (40-110); Anion Gap 11 mmol/L (10-20); BUN (Urea Nitrogen) 21 mg/dL (8.4-25.7); Bilirubin, Total 0.6 mg/dL (0.2-1.2); CK (CPK) 77 U/L (30-200); Calc. Creatinine Clearance 0 mL/min (70-130); Calcium 9.2 mg/dL (7.8-10.44); Carbon Dioxide 25 mmol/L (23-31); Chloride 105 mmol/L (98-107); Estimated GFR-MDRD 79; Globulin 2.5 g/dL (2.4-3.5); Glucose 96 mg/dL (80-115); Magnesium 1.9 mg/dL (1.6-2.6); Potassium 4.1 mmol/L (3.5-5.1); Protein, Total 6.9 g/dL (5.8-8.1); Sodium 137 mmol/L (136-145)
== END 2020-04-08 20:43 | disposition home or self-care (01) ==
LOC: ERS 18:35
DX: I48.91 Unspecified atrial fibrillation (principal); R07.9 Chest pain, unspecified; I10 Essential (primary) hypertension; F17.210 Nicotine dependence, cigarettes, uncomplicated; Z79.01 Long term (current) use of anticoagulants; Z79.899 Other long term (current) drug therapy
CPT/HCPCS: 71045; 80053; 82550; 83735; 84443; 84484; 85025; 93005; 96361; 96374

== ENCOUNTER 2020-04-24 08:35 | Outpatient (CLI) | payer MEDICARE, OTHER ==
[2020-04-24 18:08] LABS: Hemoglobin 15.3 g/dL (14.0-18.0); Mean Corpuscular HGB CONC 33.6 g/dL (32.0-36.0); Mean Corpuscular Hemoglobin 32.1 pg (27.0-31.0); Mean Corpuscular Volume 95.3 fL (78.0-98.0); Mean Platelet Volume 7.2 fL (7.4-10.4); Platelet Count 288 thou/uL (130-400); RBC Distribution Width 12.5 % (11.5-14.5); Red Blood Cell (RBC) Count 4.76 mill/uL (4.70-6.10); White Blood Cell (WBC) Count 8.6 thou/uL (4.8-10.8)
[2020-04-24 18:26] LABS: INR-International Normal Ratio 1.1; Prothrombin Time 13.8 sec (12.0-14.7)
[2020-04-24 23:53] LABS: Anion Gap 17 mmol/L (10-20); BUN (Urea Nitrogen) 20 mg/dL (8.4-25.7); Calc. Creatinine Clearance 0 mL/min (70-130); Carbon Dioxide 22 mmol/L (23-31); Chloride 102 mmol/L (98-107); Estimated GFR-MDRD 74; Glucose 97 mg/dL (80-115); Potassium 5.2 mmol/L (3.5-5.1); Sodium 136 mmol/L (136-145)
[2020-04-24 23:54] LABS: Calcium 9.4 mg/dL (7.8-10.44)
--- NOTE | 2020-04-25 10:31 | EKG ---
Test Reason : PREOP Blood Pressure : / mmHG Vent. Rate : 067 BPM Atrial Rate : 067 BPM P-R Int : 156 ms QRS Dur : 082 ms QT Int : 426 ms P-R-T Axes : 086 081 079 degrees QTc Int : 450 ms Normal sinus rhythm Normal ECG Confirmed by ISIDORO CAST M.D. ([id number] on 04/25/2020 10:30:44 AM Referred By: [facility] Confirmed By:ISIDORO CAST M.D.
== END 2020-04-24 08:36 | disposition home or self-care (01) ==
LOC: LABBT 08:35
PROVIDERS: ATTEND Specialist
DX: Z01.818 Encounter for other preprocedural examination (principal); I48.91 Unspecified atrial fibrillation
CPT/HCPCS: 80048; 85027; 85610; 85730; 93005; 93010

== ENCOUNTER 2024-06-25 14:05 | Outpatient (CLI) | payer MEDICARE | END 2024-06-25 14:06 | disposition home or self-care (01) | LOC: CT 14:05 | PROVIDERS: ATTEND Family Medicine | DX: R91.8 Other nonspecific abnormal finding of lung field (principal) | CPT/HCPCS: 71250 ==

== ENCOUNTER 2025-07-20 13:22 | Outpatient (CLI) | payer MEDICARE | END 2025-07-20 13:23 | disposition home or self-care (01) | LOC: CT 13:22 | PROVIDERS: ATTEND Family Medicine | DX: F17.200 Nicotine dependence, unspecified, uncomplicated (principal); R91.1 Solitary pulmonary nodule | CPT/HCPCS: 71250 ==